=== PATIENT | female | born 1975 | race Caucasian/White ===

== ENCOUNTER 2019-04-28 15:52 | Emergency (ER) | payer OTHER ==
[~2019-04-28] VITALS: Ht 147.3 cm; Wt 136.5 kg
[~2019-04-28 15:52] MED LIST: GLUCOPHAGE XR500 MG PO; HCTZ; OMEPRAZOLE 20 M20 MG; OMEPRAZOLE40 MG PO; PAXIL10 MG PO; PAXIL30 MG; ZESTORETIC 10-1 EACH PO
[2019-04-28] MEDS ORDERED: LEXAPRO 10 MG T10 M2 PO (15:57)
[2019-04-28 16:22] LABS: ABSOLUTE BASOPHILS 0.2 thou/uL (0.0-0.2); ABSOLUTE EOSINOPHILS 0.1 thou/uL (0.0-0.7); ABSOLUTE LYMPHOCYTES 3.4 thou/uL (0.8-5.3); ABSOLUTE MONOCYTES 0.8 thou/uL (0.0-1.2); ABSOLUTE NEUTROPHILS 10.8 thou/uL (1.6-8.1); BASOPHILS 1.3 %; EOSINOPHILS 0.9 %; HEMATOCRIT 35.2 % (37.0-47.0); HEMOGLOBIN 11.4 gm/dL (12.0-15.0); LYMPHOCYTES 22.1 %; MCH 24.9 pg (26.0-34.0); MCHC 32.2 g/dL (28.0-37.0); MCV 77.3 fL (80.0-100.0); MONOCYTES 5.1 %; MPV 8.5 fl. (7.2-11.1); NUCLEATED RBCS 0 /100WBC; PLATELET COUNT* 391 thou/uL (150-400); POLYS 70.6 %; RBC 4.56 mil/uL (4.20-5.00); RDW-CV 15.8 % (10.5-14.5); WBC 15.3 thou/uL (4.0-11.0)
[2019-04-28 16:34] LABS: ANION GAP 11 mmol/L (7-16); BUN 10 mg/dL (7-18); CALCIUM 9.2 mg/dL (8.5-10.1); CHLORIDE 102 mmol/L (98-107); CO2 26 mmol/L (21-32); CREATININE 0.8 mg/dL (0.6-1.3); GLUCOSE 118 mg/dL (70-99); POTASSIUM 3.6 mmol/L (3.5-5.1); SODIUM 139 mmol/L (136-145)
[2019-04-28 16:36] LABS: APTT 27.8 Seconds (25.0-31.3); PROTIME 10.5 Seconds (9.20-11.50)
[2019-04-28 16:47] LABS: ALBUMIN 3.2 g/dL (3.4-5.0); ALKALINE PHOSPHATASE 63 U/L (46-116); CK-MB MASS 0.5 ng/mL (<0.5-3.6); LIPASE 145 U/L (73-393); MAGNESIUM 1.7 mg/dL (1.8-2.4); NT-PRO BRAIN NAT PEPTIDE 33 pg/mL (<300); SGOT 15 U/L (15-37); SGPT 28 U/L (30-65); TOTAL BILIRUBIN 0.1 mg/dL (<0.1-1.0); TOTAL PROTEIN 7.4 g/dL (6.4-8.2); TROPONIN-I LEVEL <0.06 ng/mL (<0.06)
[2019-04-28 16:56] VITALS: BP 125/74
--- NOTE | 2019-04-29 16:16 | EKG ---
[place] [address] ELECTROCARDIOGRAM REPORT Name: VASILE GORDON Room: [facility]#: [id number] Admission: 04/28/19 Attend Phys: Discharge: 04/28/19 Date of : 73 Report #: [id number] THIS REPORT FOR: //name// [facility] ED Test Date: 2019-04-28 Test Time: 15:58:09 Pat Name: VASILE GORDON Department: Room: Gender: F [employer]: [place] : 1975 Requested By: Ion Robertson Order Number: [id number] MD: Aquiles Salguero Measurements Intervals [place] Rate: 92 P: 18 [place]: 139 QRS: 26 QRSD: 97 T: 36 QT: 376 QTc: 466 Interpretive Statements Sinus rhythm Borderline T abnormalities, anterior leads No previous ECG available for comparison Electronically Signed On 04-29-2019 16:16:17 CDT by Aquiles Salguero [email or web address] <ELECTRONICALLY SIGNED> By: Aquiles Salguero MD, [facility] 04/29/19 1616 1558 1558 Aquiles Salguero MD, FACC /EPI
== END 2019-04-28 16:57 | disposition home or self-care (01) ==
LOC: M.ERS 15:52
PROVIDERS: Family Medicine
DX: F41.9 Anxiety disorder, unspecified (principal); K21.9 Gastro-esophageal reflux disease without esophagitis; Z90.49 Acquired absence of other specified parts of digestive tract